=== PATIENT | male | born 1990 | race African-American/Black ===

== ENCOUNTER 2017-06-10 17:16 | Inpatient (IN) | payer MEDICAID ==
[~2017-06-10] VITALS: Ht 185.4 cm; Wt 210.4 kg
[~2017-06-10 17:16] MED LIST: BENZ2TAB6 PO; HALO5TAB5 PO; LITH300C PO; LORA10TA3 PO; LOSA50TA6 PO; QUET100T PO; RANI150T4 PO
[2017-06-10 18:07] LABS: BASOPHILS # (AUTO) 0.07 x10^3/uL (0-0.1); BASOPHILS % (AUTO) 1 % (0-1); EOSINOPHILS % (AUTO) 3 % (1-7); LYMPHOCYTES # (AUTO) 1.31 x10^3/uL (1-3.4); LYMPHOCYTES % (AUTO) 13 % (22-44); MD NO; MEAN CORPUSCULAR HEMOGLOBIN 28.9 pg (27.5-34.5); MEAN CORPUSCULAR HGB CONC 33.1 g/dL (33.2-36.2); MEAN CORPUSCULAR VOLUME 87.4 fL (81-97); MEAN PLATELET VOLUME 7.6 fL (7.4-10.4); MONOCYTES # (AUTO) 0.73 x10^3/uL (0.2-0.8); MONOCYTES % (AUTO) 7 % (2-9); NEUTROPHILS # (AUTO) 7.99 x10^3/uL (1.8-6.8); NEUTROPHILS % (AUTO) 77 % (42-75); PLATELET COUNT 449 x10^3/uL (130-400); RED BLOOD COUNT 4.73 x10^6/uL (4.38-5.82); RED CELL DISTRIBUTION WIDTH 13.6 % (9.4-14.8)
[2017-06-10 18:14] LABS: ALBUMIN 2.9 g/dL (3.4-5.0); ANION GAP 11 mmol/L (5-15); CALCIUM 9.8 mg/dL (8.5-10.1); CHLORIDE 106 mmol/L (98-107); CREATININE 1.25 mg/dL (0.7-1.3)
[2017-06-10] MEDS ORDERED: ONDANSETRON ODT 4 MG PO ONE (19:00)
[2017-06-10] MEDS ORDERED: morphine SULFATE 10 MG/ML, 1ML IVPush ONE (19:00)
[2017-06-10] MEDS ORDERED: CLINDAMYCIN PMX 600MG/50ML 50 ML IV ONE (19:00)
[2017-06-10] MEDS ORDERED: MORPHINE SULFATE 4 MG/ML, 1ML ONE (19:10)
[2017-06-10] MEDS ORDERED: ONDANSETRON ODT 4 MG ONE (19:10)
[2017-06-10] MEDS ORDERED: CLINDAMYCIN PMX 900MG/50ML 0 ML ONE (19:11)
[2017-06-10] MEDS ORDERED: CLINDAMYCIN PMX 600MG/50ML 50 ML ONE (19:16)
[2017-06-10] MEDS ORDERED: EPIN0.3P3 INJ (19:30)
[2017-06-10] MEDS ORDERED: CHOL4PAC2 PO (19:30)
[2017-06-10] MEDS ORDERED: CLON2TAB2 PO (19:30)
[2017-06-10] MEDS ORDERED: RISP1DIS INJ (19:30)
[2017-06-10] MEDS ORDERED: AMLO10TA2 PO (19:30)
[2017-06-10 21:20] VITALS: BP 111/45
[2017-06-10] MEDS: LITHIUM CARBONATE 300 MG CAPSULE PO SCH (22:24)
[2017-06-10] MEDS: D5%-0.45NACL+KCL 20MEQ 1,000 ML IV SCH (22:24)
[2017-06-10] MEDS: ENOXAPARIN 30 MG/0.3 ML SQ SCH (22:24)
[2017-06-10] MEDS: QUETIAPINE 100MG TABLET PO SCH (22:25)
[2017-06-10] MEDS: HALOPERIDOL 5 MG TABLET PO SCH (22:25)
[2017-06-10] MEDS: BENZTROPINE 1 MG TABLET PO SCH (22:25)
[2017-06-10] MEDS ORDERED: SODIUM CHLORIDE 0.9% 1,000ML IVBOLUS ONE (23:30)
[2017-06-11 00:38] VITALS: BP 104/61
[2017-06-11] MEDS: CLINDAMYCIN PMX 600MG/50ML 50 ML IV SCH ×3 (03:15→19:45)
[2017-06-11 05:39] LABS: CHLORIDE 110 mmol/L (98-107)
[2017-06-11 05:51] LABS: HEMOGLOBIN A1C 5.4 % (4.2-6.3)
[2017-06-11 05:57] LABS: ANION GAP 8 mmol/L (5-15); CALCIUM 8.6 mg/dL (8.5-10.1); CREATININE 1.12 mg/dL (0.7-1.3)
[2017-06-11 06:12] LABS: BASOPHILS # (AUTO) 0.05 x10^3/uL (0-0.1); BASOPHILS % (AUTO) 1 % (0-1); EOSINOPHILS # (AUTO) 0.38 x10^3/uL (0-0.4); EOSINOPHILS % (AUTO) 4 % (1-7); LYMPHOCYTES % (AUTO) 15 % (22-44); MD NO; MEAN CORPUSCULAR HEMOGLOBIN 29.1 pg (27.5-34.5); MEAN CORPUSCULAR HGB CONC 33.4 g/dL (33.2-36.2); MEAN CORPUSCULAR VOLUME 87.2 fL (81-97); MEAN PLATELET VOLUME 7.9 fL (7.4-10.4); MONOCYTES # (AUTO) 1.04 x10^3/uL (0.2-0.8); MONOCYTES % (AUTO) 10 % (2-9); NEUTROPHILS # (AUTO) 7.22 x10^3/uL (1.8-6.8); NEUTROPHILS % (AUTO) 71 % (42-75); PLATELET COUNT 387 x10^3/uL (130-400); RED BLOOD COUNT 4.39 x10^6/uL (4.38-5.82); RED CELL DISTRIBUTION WIDTH 13.9 % (9.4-14.8)
[2017-06-11 06:29] VITALS: BP 126/76
[2017-06-11 07:19] LABS: HCT (SEDRATE) 37.8 % (39.2-51.8)
[2017-06-11] MEDS: ENOXAPARIN 30 MG/0.3 ML SQ SCH ×2 (09:12→22:11)
[2017-06-11] MEDS: LITHIUM CARBONATE 300 MG CAPSULE PO SCH ×2 (09:13→22:07)
[2017-06-11] MEDS: FAMOTIDINE 20 MG TABLET PO SCH (09:13)
[2017-06-11] MEDS: AMLODIPINE 5 MG TABLET PO SCH (09:13)
[2017-06-11] MEDS: LORATADINE 10 MG TABLET PO SCH (09:13)
[2017-06-11] MEDS: BENZTROPINE 1 MG TABLET PO SCH ×2 (09:13→22:08)
[2017-06-11] MEDS: LOSARTAN 50MG TABLET PO SCH (09:13)
[2017-06-11] MEDS: D5%-0.45NACL+KCL 20MEQ 1,000 ML IV SCH ×2 (10:23→18:17)
[2017-06-11 12:33] VITALS: BP 128/79
[2017-06-11] MEDS ORDERED: BISACODYL 10 MG SUPP PR PRN (17:30)
[2017-06-11 18:59] VITALS: BP 125/80
[2017-06-11] MEDS: HALOPERIDOL 5 MG TABLET PO SCH (22:08)
[2017-06-11] MEDS: SENNA/DOCUSATE TABLET PO SCH (22:11)
[2017-06-11] MEDS: QUETIAPINE 100MG TABLET PO SCH (22:12)
[2017-06-12 01:27] VITALS: BP 121/80
[2017-06-12] MEDS: D5%-0.45NACL+KCL 20MEQ 1,000 ML IV SCH ×3 (01:36→20:29)
[2017-06-12] MEDS: CLINDAMYCIN PMX 600MG/50ML 50 ML IV SCH ×2 (03:47→11:05)
[2017-06-12 06:28] VITALS: BP 122/70
[2017-06-12] MEDS: DOCUSATE 100 MG CAPSULE PO SCH (09:00)
[2017-06-12] MEDS: BENZTROPINE 1 MG TABLET PO SCH ×2 (09:42→20:31)
[2017-06-12] MEDS: LITHIUM CARBONATE 300 MG CAPSULE PO SCH ×2 (09:42→20:31)
[2017-06-12] MEDS: FAMOTIDINE 20 MG TABLET PO SCH (09:42)
[2017-06-12] MEDS: LORATADINE 10 MG TABLET PO SCH (09:42)
[2017-06-12] MEDS: LOSARTAN 50MG TABLET PO SCH (09:42)
[2017-06-12] MEDS: ENOXAPARIN 30 MG/0.3 ML SQ SCH ×2 (09:43→20:30)
[2017-06-12] MEDS: AMLODIPINE 5 MG TABLET PO SCH (09:43)
[2017-06-12 12:35] VITALS: BP 137/80
[2017-06-12 14:44] LABS: ANA SCREEN NEGATIVE (Negative)
[2017-06-12] MEDS ORDERED: OMEPRAZOLE 20 MG CAPSULE.DR PO ONE (15:47)
[2017-06-12 19:19] VITALS: BP 165/70
[2017-06-12] MEDS: QUETIAPINE 100MG TABLET PO SCH (20:32)
[2017-06-12] MEDS: SENNA/DOCUSATE TABLET PO SCH (20:41)
[2017-06-12] MEDS: HALOPERIDOL 5 MG TABLET PO SCH (20:41)
[2017-06-12 20:43] VITALS: BP 139/83
[2017-06-13] MEDS: ACETAMINOPHEN 325 MG TABLET PO PRN (01:14)
[2017-06-13 01:28] VITALS: BP 140/80
[2017-06-13] MEDS: D5%-0.45NACL+KCL 20MEQ 1,000 ML IV SCH ×2 (04:19→09:55)
[2017-06-13 07:45] VITALS: BP 135/81
[2017-06-13] MEDS: DOCUSATE 100 MG CAPSULE PO SCH (09:00)
[2017-06-13] MEDS: AMLODIPINE 5 MG TABLET PO SCH (09:15)
[2017-06-13] MEDS: OMEPRAZOLE 20 MG CAPSULE.DR PO SCH (09:16)
[2017-06-13] MEDS: FAMOTIDINE 20 MG TABLET PO SCH (09:16)
[2017-06-13] MEDS: LITHIUM CARBONATE 300 MG CAPSULE PO SCH ×2 (09:16→21:58)
[2017-06-13] MEDS: LORATADINE 10 MG TABLET PO SCH (09:16)
[2017-06-13] MEDS: LOSARTAN 50MG TABLET PO SCH (09:16)
[2017-06-13] MEDS: BENZTROPINE 1 MG TABLET PO SCH ×2 (09:16→21:00)
[2017-06-13] MEDS: ENOXAPARIN 30 MG/0.3 ML SQ SCH ×2 (09:17→21:58)
[2017-06-13 16:19] VITALS: BP 133/64
[2017-06-13 19:41] VITALS: BP 106/70
[2017-06-13] MEDS: HALOPERIDOL 5 MG TABLET PO SCH (21:58)
[2017-06-13] MEDS: QUETIAPINE 100MG TABLET PO SCH (21:59)
[2017-06-14 02:45] VITALS: BP 122/82
[2017-06-14 08:13] VITALS: BP 134/76
[2017-06-14] MEDS: DOCUSATE 100 MG CAPSULE PO SCH (09:00)
[2017-06-14] MEDS: LORATADINE 10 MG TABLET PO SCH (10:07)
[2017-06-14] MEDS: ENOXAPARIN 30 MG/0.3 ML SQ SCH ×2 (10:07→20:38)
[2017-06-14] MEDS: AMLODIPINE 5 MG TABLET PO SCH (10:08)
[2017-06-14] MEDS: BENZTROPINE 1 MG TABLET PO SCH ×2 (10:08→20:37)
[2017-06-14] MEDS: FAMOTIDINE 20 MG TABLET PO SCH (10:08)
[2017-06-14] MEDS: LITHIUM CARBONATE 300 MG CAPSULE PO SCH ×2 (10:08→20:38)
[2017-06-14] MEDS: LOSARTAN 50MG TABLET PO SCH (10:08)
[2017-06-14] MEDS: OMEPRAZOLE 20 MG CAPSULE.DR PO SCH (10:08)
[2017-06-14] MEDS: ACETAMINOPHEN 325 MG TABLET PO PRN (11:45)
[2017-06-14 12:53] VITALS: BP 167/80
[2017-06-14 19:41] VITALS: BP 127/78
[2017-06-14] MEDS: QUETIAPINE 100MG TABLET PO SCH (20:38)
[2017-06-14] MEDS: HALOPERIDOL 5 MG TABLET PO SCH (20:38)
[2017-06-15 00:19] VITALS: BP 133/81
[2017-06-15 06:07] LABS: CLOSTRIDIUM DIFFICILE ANTIGEN NEGATIVE; CLOSTRIDIUM DIFFICILE TOXIN NEGATIVE (Negative)
[2017-06-15 06:53] VITALS: BP 123/75
[2017-06-15 07:47] LABS: BASOPHILS # (AUTO) 0.13 x10^3/uL (0-0.1); BASOPHILS % (AUTO) 1 % (0-1); EOSINOPHILS # (AUTO) 0.14 x10^3/uL (0-0.4); EOSINOPHILS % (AUTO) 1 % (1-7); LYMPHOCYTES # (AUTO) 2.19 x10^3/uL (1-3.4); LYMPHOCYTES % (AUTO) 16 % (22-44); MD NO; MEAN CORPUSCULAR HEMOGLOBIN 28.5 pg (27.5-34.5); MEAN CORPUSCULAR HGB CONC 33.2 g/dL (33.2-36.2); MEAN PLATELET VOLUME 7.7 fL (7.4-10.4); MONOCYTES # (AUTO) 1.14 x10^3/uL (0.2-0.8); MONOCYTES % (AUTO) 8 % (2-9); NEUTROPHILS # (AUTO) 10.21 x10^3/uL (1.8-6.8); NEUTROPHILS % (AUTO) 74 % (42-75); PLATELET COUNT 541 x10^3/uL (130-400); RED BLOOD COUNT 4.73 x10^6/uL (4.38-5.82); RED CELL DISTRIBUTION WIDTH 13.9 % (9.4-14.8)
[2017-06-15] MEDS: DOCUSATE 100 MG CAPSULE PO SCH (07:58)
[2017-06-15] MEDS: LITHIUM CARBONATE 300 MG CAPSULE PO SCH ×2 (08:04→22:15)
[2017-06-15] MEDS: ENOXAPARIN 30 MG/0.3 ML SQ SCH ×2 (08:04→22:16)
[2017-06-15] MEDS: AMLODIPINE 5 MG TABLET PO SCH (08:04)
[2017-06-15] MEDS: LORATADINE 10 MG TABLET PO SCH (08:04)
[2017-06-15] MEDS: OMEPRAZOLE 20 MG CAPSULE.DR PO SCH (08:04)
[2017-06-15] MEDS: FAMOTIDINE 20 MG TABLET PO SCH (08:04)
[2017-06-15] MEDS: LOSARTAN 50MG TABLET PO SCH (08:04)
[2017-06-15] MEDS: BENZTROPINE 1 MG TABLET PO SCH ×2 (08:05→22:15)
[2017-06-15 12:31] VITALS: BP 128/79
[2017-06-15 20:02] VITALS: BP 118/75
[2017-06-15] MEDS: HALOPERIDOL 5 MG TABLET PO SCH (21:00)
[2017-06-15] MEDS: QUETIAPINE 100MG TABLET PO SCH (22:16)
[2017-06-16 03:13] VITALS: BP 120/79
[2017-06-16 05:38] LABS: BASOPHILS # (AUTO) 0.04 x10^3/uL (0-0.1); BASOPHILS % (AUTO) 0 % (0-1); EOSINOPHILS # (AUTO) 0.17 x10^3/uL (0-0.4); EOSINOPHILS % (AUTO) 1 % (1-7); LYMPHOCYTES # (AUTO) 2.81 x10^3/uL (1-3.4); LYMPHOCYTES % (AUTO) 22 % (22-44); MD NO; MEAN CORPUSCULAR HEMOGLOBIN 28.9 pg (27.5-34.5); MEAN CORPUSCULAR HGB CONC 33.1 g/dL (33.2-36.2); MEAN CORPUSCULAR VOLUME 87.6 fL (81-97); MEAN PLATELET VOLUME 7.5 fL (7.4-10.4); MONOCYTES # (AUTO) 1.03 x10^3/uL (0.2-0.8); MONOCYTES % (AUTO) 8 % (2-9); NEUTROPHILS # (AUTO) 8.73 x10^3/uL (1.8-6.8); NEUTROPHILS % (AUTO) 68 % (42-75); PLATELET COUNT 577 x10^3/uL (130-400); RED BLOOD COUNT 4.79 x10^6/uL (4.38-5.82); RED CELL DISTRIBUTION WIDTH 13.8 % (9.4-14.8)
[2017-06-16 05:42] LABS: ANION GAP 9 mmol/L (5-15); CALCIUM 8.8 mg/dL (8.5-10.1); CHLORIDE 105 mmol/L (98-107); CREATININE 1.15 mg/dL (0.7-1.3)
[2017-06-16 06:36] VITALS: BP 118/73
[2017-06-16] MEDS: OMEPRAZOLE 20 MG CAPSULE.DR PO SCH (07:55)
[2017-06-16] MEDS: AMLODIPINE 5 MG TABLET PO SCH (07:55)
[2017-06-16] MEDS: BENZTROPINE 1 MG TABLET PO SCH ×2 (07:55→21:14)
[2017-06-16] MEDS: LITHIUM CARBONATE 300 MG CAPSULE PO SCH ×2 (07:55→21:14)
[2017-06-16] MEDS: FAMOTIDINE 20 MG TABLET PO SCH (07:56)
[2017-06-16] MEDS: LOSARTAN 50MG TABLET PO SCH (07:56)
[2017-06-16] MEDS: LORATADINE 10 MG TABLET PO SCH (07:56)
[2017-06-16] MEDS: DOCUSATE 100 MG CAPSULE PO SCH (07:56)
[2017-06-16] MEDS: ENOXAPARIN 30 MG/0.3 ML SQ SCH ×2 (07:56→21:13)
[2017-06-16 12:34] VITALS: BP 126/75
[2017-06-16] MEDS: CHOLESTYRAMINE LIGHT 4GM PACKET PO PRN ×2 (15:18→21:37)
[2017-06-16] MEDS ORDERED: PALI234D IM (15:53)
[2017-06-16 20:51] VITALS: BP 127/71
[2017-06-16] MEDS: HALOPERIDOL 5 MG TABLET PO SCH (21:00)
[2017-06-16] MEDS: QUETIAPINE 100MG TABLET PO SCH (21:15)
[2017-06-17 02:19] VITALS: BP 121/75
[2017-06-17 07:30] VITALS: BP 102/67
[2017-06-17] MEDS: FAMOTIDINE 20 MG TABLET PO SCH (08:15)
[2017-06-17] MEDS: BENZTROPINE 1 MG TABLET PO SCH ×2 (08:15→20:19)
[2017-06-17] MEDS: LORATADINE 10 MG TABLET PO SCH (08:15)
[2017-06-17] MEDS: OMEPRAZOLE 20 MG CAPSULE.DR PO SCH (08:15)
[2017-06-17] MEDS: AMLODIPINE 5 MG TABLET PO SCH (08:16)
[2017-06-17] MEDS: DOCUSATE 100 MG CAPSULE PO SCH (08:16)
[2017-06-17] MEDS: ENOXAPARIN 30 MG/0.3 ML SQ SCH ×2 (08:16→20:20)
[2017-06-17] MEDS: LOSARTAN 50MG TABLET PO SCH (08:16)
[2017-06-17] MEDS: LITHIUM CARBONATE 300 MG CAPSULE PO SCH ×2 (08:17→20:19)
[2017-06-17 08:20] VITALS: BP 133/81
[2017-06-17] MEDS: ACETAMINOPHEN 325 MG TABLET PO PRN (09:53)
[2017-06-17 12:07] VITALS: BP 119/78
[2017-06-17] MEDS: HALOPERIDOL 5 MG TABLET PO SCH (20:20)
[2017-06-17] MEDS: QUETIAPINE 100MG TABLET PO SCH (20:20)
[2017-06-17] MEDS: CHOLESTYRAMINE LIGHT 4GM PACKET PO PRN (20:22)
[2017-06-17 20:24] VITALS: BP 126/81
[2017-06-18 01:43] VITALS: BP 126/81
[2017-06-18 07:23] VITALS: BP 129/78
[2017-06-18] MEDS: LITHIUM CARBONATE 300 MG CAPSULE PO SCH ×2 (09:00→21:41)
[2017-06-18] MEDS: FAMOTIDINE 20 MG TABLET PO SCH (09:00)
[2017-06-18] MEDS: BENZTROPINE 1 MG TABLET PO SCH ×2 (09:00→21:40)
[2017-06-18] MEDS: OMEPRAZOLE 20 MG CAPSULE.DR PO SCH (09:00)
[2017-06-18] MEDS: AMLODIPINE 5 MG TABLET PO SCH (09:00)
[2017-06-18] MEDS: LORATADINE 10 MG TABLET PO SCH (09:00)
[2017-06-18] MEDS: LOSARTAN 50MG TABLET PO SCH (09:00)
[2017-06-18] MEDS: DOCUSATE 100 MG CAPSULE PO SCH (09:00)
[2017-06-18] MEDS: ENOXAPARIN 30 MG/0.3 ML SQ SCH ×2 (09:00→21:40)
[2017-06-18 14:10] VITALS: BP 103/68
[2017-06-18] MEDS ORDERED: PALIPERIDONE PALMITATE 234 MG/1.5 ML IM ONE (14:30)
[2017-06-18 20:45] VITALS: BP 104/66
[2017-06-18] MEDS: QUETIAPINE 100MG TABLET PO SCH (21:41)
[2017-06-18] MEDS: HALOPERIDOL 5 MG TABLET PO SCH (21:41)
[2017-06-19 02:00] VITALS: BP 116/73
[2017-06-19] MEDS ORDERED: IBUPROFEN 200 MG TABLET PO PRN (05:30)
[2017-06-19 08:20] VITALS: BP 130/81
[2017-06-19] MEDS: OMEPRAZOLE 20 MG CAPSULE.DR PO SCH (08:23)
[2017-06-19] MEDS: ENOXAPARIN 30 MG/0.3 ML SQ SCH ×2 (08:23→20:14)
[2017-06-19] MEDS: DOCUSATE 100 MG CAPSULE PO SCH (08:24)
[2017-06-19] MEDS: LORATADINE 10 MG TABLET PO SCH (08:24)
[2017-06-19] MEDS: LOSARTAN 50MG TABLET PO SCH (08:24)
[2017-06-19] MEDS: BENZTROPINE 1 MG TABLET PO SCH ×2 (08:24→20:13)
[2017-06-19] MEDS: LITHIUM CARBONATE 300 MG CAPSULE PO SCH ×2 (08:24→20:14)
[2017-06-19] MEDS: FAMOTIDINE 20 MG TABLET PO SCH (08:24)
[2017-06-19] MEDS: AMLODIPINE 5 MG TABLET PO SCH (08:31)
[2017-06-19 17:23] VITALS: BP 122/76
[2017-06-19] MEDS: HALOPERIDOL 5 MG TABLET PO SCH (20:13)
[2017-06-19] MEDS: QUETIAPINE 100MG TABLET PO SCH (20:14)
[2017-06-19 20:17] VITALS: BP 118/77
[2017-06-20 03:34] VITALS: BP 131/82
[2017-06-20 07:17] VITALS: BP 129/79
[2017-06-20] MEDS: LITHIUM CARBONATE 300 MG CAPSULE PO SCH ×2 (08:02→22:28)
[2017-06-20] MEDS: ENOXAPARIN 30 MG/0.3 ML SQ SCH ×2 (08:02→22:26)
[2017-06-20] MEDS: LORATADINE 10 MG TABLET PO SCH (08:02)
[2017-06-20] MEDS: DOCUSATE 100 MG CAPSULE PO SCH (08:02)
[2017-06-20] MEDS: BENZTROPINE 1 MG TABLET PO SCH ×2 (08:03→22:27)
[2017-06-20] MEDS: OMEPRAZOLE 20 MG CAPSULE.DR PO SCH (08:03)
[2017-06-20] MEDS: LOSARTAN 50MG TABLET PO SCH (08:04)
[2017-06-20] MEDS: IBUPROFEN 200 MG TABLET PO SCH ×3 (08:09→22:28)
[2017-06-20] MEDS: AMLODIPINE 5 MG TABLET PO SCH (08:10)
[2017-06-20 20:00] VITALS: BP 112/74
[2017-06-20] MEDS: HALOPERIDOL 5 MG TABLET PO SCH (22:27)
[2017-06-20] MEDS: QUETIAPINE 100MG TABLET PO SCH (22:27)
[2017-06-21 03:34] VITALS: BP 105/69
[2017-06-21] MEDS: DOCUSATE 100 MG CAPSULE PO SCH ×2 (09:00→10:03)
[2017-06-21] MEDS: ENOXAPARIN 30 MG/0.3 ML SQ SCH ×2 (09:49→22:01)
[2017-06-21] MEDS: IBUPROFEN 200 MG TABLET PO SCH ×3 (09:52→22:00)
[2017-06-21] MEDS: LORATADINE 10 MG TABLET PO SCH (09:53)
[2017-06-21] MEDS: OMEPRAZOLE 20 MG CAPSULE.DR PO SCH (09:54)
[2017-06-21 09:55] VITALS: BP 136/79
[2017-06-21] MEDS: LOSARTAN 50MG TABLET PO SCH (09:59)
[2017-06-21] MEDS: BENZTROPINE 1 MG TABLET PO SCH ×2 (10:00→22:00)
[2017-06-21] MEDS: LITHIUM CARBONATE 300 MG CAPSULE PO SCH ×2 (10:01→22:00)
[2017-06-21] MEDS: AMLODIPINE 5 MG TABLET PO SCH (10:01)
[2017-06-21 15:04] VITALS: BP 119/75
[2017-06-21] MEDS: CHOLESTYRAMINE LIGHT 4GM PACKET PO PRN (16:46)
[2017-06-21] MEDS: HALOPERIDOL 5 MG TABLET PO SCH (22:00)
[2017-06-21] MEDS: QUETIAPINE 100MG TABLET PO SCH (22:01)
[2017-06-22 03:14] VITALS: BP 121/75
[2017-06-22 05:20] LABS: CREATININE 0.99 mg/dL (0.7-1.3)
[2017-06-22] MEDS: OMEPRAZOLE 20 MG CAPSULE.DR PO SCH (08:38)
[2017-06-22] MEDS: LORATADINE 10 MG TABLET PO SCH (08:38)
[2017-06-22] MEDS: AMLODIPINE 5 MG TABLET PO SCH (08:38)
[2017-06-22] MEDS: BENZTROPINE 1 MG TABLET PO SCH ×2 (08:38→21:35)
[2017-06-22] MEDS: IBUPROFEN 200 MG TABLET PO SCH ×3 (08:38→21:36)
[2017-06-22] MEDS: LITHIUM CARBONATE 300 MG CAPSULE PO SCH ×2 (08:38→21:35)
[2017-06-22] MEDS: LOSARTAN 50MG TABLET PO SCH (08:39)
[2017-06-22] MEDS: DOCUSATE 100 MG CAPSULE PO SCH (08:39)
[2017-06-22] MEDS: ENOXAPARIN 30 MG/0.3 ML SQ SCH ×2 (08:40→21:36)
[2017-06-22 08:43] VITALS: BP 138/84
[2017-06-22 14:38] VITALS: BP 123/82
[2017-06-22 20:44] VITALS: BP 121/68
[2017-06-22] MEDS: HALOPERIDOL 5 MG TABLET PO SCH (21:35)
[2017-06-22] MEDS: QUETIAPINE 100MG TABLET PO SCH (21:36)
[2017-06-23 00:35] VITALS: BP 102/64
[2017-06-23 06:40] VITALS: BP 121/68
[2017-06-23] MEDS: DOCUSATE 100 MG CAPSULE PO SCH (09:00)
[2017-06-23] MEDS: AMLODIPINE 5 MG TABLET PO SCH (09:36)
[2017-06-23] MEDS: OMEPRAZOLE 20 MG CAPSULE.DR PO SCH (09:36)
[2017-06-23] MEDS: LITHIUM CARBONATE 300 MG CAPSULE PO SCH ×2 (09:37→21:47)
[2017-06-23] MEDS: BENZTROPINE 1 MG TABLET PO SCH ×2 (09:37→21:48)
[2017-06-23] MEDS: ENOXAPARIN 30 MG/0.3 ML SQ SCH ×2 (09:37→21:48)
[2017-06-23] MEDS: LOSARTAN 50MG TABLET PO SCH (09:37)
[2017-06-23] MEDS: IBUPROFEN 200 MG TABLET PO SCH ×3 (09:37→21:47)
[2017-06-23] MEDS: LORATADINE 10 MG TABLET PO SCH (09:37)
[2017-06-23 13:02] VITALS: BP 133/85
[2017-06-23] MEDS ORDERED: LITH600C PO (15:51)
[2017-06-23] MEDS ORDERED: CHOL4PAC2 PO (15:51)
[2017-06-23] MEDS ORDERED: AMLO10TA2 PO (15:51)
[2017-06-23] MEDS ORDERED: CHOL5000 PO ×2 (15:51)
[2017-06-23] MEDS ORDERED: CLON-365 PO (15:51)
[2017-06-23 19:56] VITALS: BP 122/77
[2017-06-23] MEDS: HALOPERIDOL 5 MG TABLET PO SCH (21:47)
[2017-06-23] MEDS: QUETIAPINE 100MG TABLET PO SCH (21:48)
[2017-06-24 01:28] VITALS: BP 140/89
[2017-06-24 06:55] VITALS: BP 133/85
[2017-06-24] MEDS: DOCUSATE 100 MG CAPSULE PO SCH (07:56)
[2017-06-24] MEDS: LITHIUM CARBONATE 300 MG CAPSULE PO SCH (08:10)
[2017-06-24] MEDS: OMEPRAZOLE 20 MG CAPSULE.DR PO SCH (08:10)
[2017-06-24] MEDS: BENZTROPINE 1 MG TABLET PO SCH (08:11)
[2017-06-24] MEDS: IBUPROFEN 200 MG TABLET PO SCH ×2 (08:11→17:32)
[2017-06-24] MEDS: AMLODIPINE 5 MG TABLET PO SCH (08:11)
[2017-06-24] MEDS: LORATADINE 10 MG TABLET PO SCH (08:11)
[2017-06-24] MEDS: LOSARTAN 50MG TABLET PO SCH (08:11)
[2017-06-24] MEDS: ENOXAPARIN 30 MG/0.3 ML SQ SCH (08:11)
[2017-06-24 12:22] VITALS: BP 107/73
[2017-06-24] MEDS ORDERED: LITHIUM CARBONATE 300 MG CAPSULE PO SCH (21:00)
== END 2017-06-24 19:18 | disposition home or self-care (01) | DRG 555 ==
LOC: ED 18:55 → EDIP 19:00 → ED 19:17 → 4EST 20:48
PROVIDERS: ADMIT Family Medicine; ATTEND Family Medicine
PROC: 5A09357 Assistance with Respiratory Ventilation, Less than 24 Consecutive Hours, Continuous Positive Airway Pressure (ICD-10-PCS; principal; 2017-06-13)
PROC: 5A09357 Assistance with Respiratory Ventilation, Less than 24 Consecutive Hours, Continuous Positive Airway Pressure (ICD-10-PCS; 2017-06-15)
PROC: 5A09357 Assistance with Respiratory Ventilation, Less than 24 Consecutive Hours, Continuous Positive Airway Pressure (ICD-10-PCS; 2017-06-16)
PROC: 5A09357 Assistance with Respiratory Ventilation, Less than 24 Consecutive Hours, Continuous Positive Airway Pressure (ICD-10-PCS; 2017-06-22)
PROC: 5A09357 Assistance with Respiratory Ventilation, Less than 24 Consecutive Hours, Continuous Positive Airway Pressure (ICD-10-PCS; 2017-06-24)
DX: M25.572 Pain in left ankle and joints of left foot (principal); G82.50 Quadriplegia, unspecified; E66.01 Morbid (severe) obesity due to excess calories; F25.9 Schizoaffective disorder, unspecified; Z68.44 Body mass index [BMI] 60.0-69.9, adult; M25.571 Pain in right ankle and joints of right foot; I10 Essential (primary) hypertension; M10.9 Gout, unspecified; M19.90 Unspecified osteoarthritis, unspecified site; Z74.01 Bed confinement status; R00.0 Tachycardia, unspecified; F29 Unspecified psychosis not due to a substance or known physiological condition; F39 Unspecified mood [affective] disorder; M79.671 Pain in right foot; M79.672 Pain in left foot
CPT/HCPCS: 36415; 80048; 80178; 82040; 82565; 83036; 83605; 84145; 84443; 84550; 85025; 85651; 86038; 86140; 86200; 86430; 87040; 87324; 87491; 87591; 93970; 96365; 96366; 96375; 99285; J1650; Q0162; J2270; J3480; J7030; J7512